=== PATIENT | female | born 1995 | race Caucasian/White ===

== ENCOUNTER → 2016-07-22 | Outpatient (CLI) | payer OTHER ==
[2016-07-23 12:44] LABS: HIV SCRN NEGATIVE (NEGATIVE); HIV SCRN1 NEGATIVE (NEGATIVE)
[2016-07-23 12:46] LABS: CONTROL LINE INT CTR LINE PRESENT
== END ==
LOC: M SMT 14:00
PROVIDERS: ATTEND Obstetrics & Gynecology
DX: Z34.83 Encounter for supervision of other normal pregnancy, third trimester (principal)

== ENCOUNTER → 2016-07-23 | Outpatient (REF) | payer OTHER | LOC: M LAB REF 13:03 | PROVIDERS: ATTEND Advanced Practice Midwife | DX: Z34.83 Encounter for supervision of other normal pregnancy, third trimester (principal) ==

== ENCOUNTER 2016-08-09 12:36 | Outpatient (CLI) | payer OTHER ==
[~2016-08-09] VITALS: Ht 165.1 cm; Wt 105.0 kg
[2016-08-09 12:50] VITALS: BP 105/55
[2016-08-09] MEDS ORDERED: PRENTAB9 PO (12:56)
[2016-08-10] MEDS ORDERED: EVEN10003 PO (09:21)
== END 2016-08-09 14:05 | disposition home or self-care (01) ==
LOC: M LDO 12:36
PROVIDERS: ATTEND Obstetrics & Gynecology
DX: O47.1 False labor at or after 37 completed weeks of gestation (principal); Z3A.40 40 weeks gestation of pregnancy; O09.293 Supervision of pregnancy with other poor reproductive or obstetric history, third trimester

== ENCOUNTER 2016-08-11 05:21 | Inpatient (IN) | payer OTHER ==
[~2016-08-11] VITALS: Ht 165.1 cm; Wt 105.0 kg
[2016-08-11] VITALS (32 sets, daily range): BP systolic 96–179; BP diastolic 52–102
[~2016-08-11 05:21] MED LIST: EVEN10003 PO; PRENTAB9 PO
[2016-08-11] MEDS ORDERED: LR 1,000 ML IV SCH (06:17)
[2016-08-11] MEDS ORDERED: LACTATED RINGER'S 1000 ML IV STA (06:17)
[2016-08-11 06:48] LABS: MEAN CORPUSCULAR HEMOGLOBIN 29.3 pg (27.0-33.0); MEAN CORPUSCULAR HGB CONC 32.9 g/dl (32.0-36.5); MEAN CORPUSCULAR VOLUME 89.3 fl (80.0-96.0); WHITE BLOOD COUNT 12.8 K/mm3 (4.0-10.0)
--- NOTE | 2016-08-11 06:59 | HPE ---
DATE OF ADMISSION: 08/11/2016 Yamilet is a 21-year-old 2, para 1-0-0-1 at 40-6/7 weeks gestation with an estimated date of confinement (EDC) of 08/05/2016 based on last menstrual period and confirmed by first trimester ultrasound. She presents to labor and delivery today with a complaint of contractions every five minutes that started approximately at 0200 that progressively got closer together and more uncomfortable. Her care was initiated at [facility] with a transfer of care to [facility] at 35 weeks gestation. course complicated by a prior section with an uncertain desire for trial of labor after (TOLAC). OBSTETRICAL HISTORY: June 2014 at 40-2/7 weeks gestation. She underwent a primary section for a 7 pounds 6 ounces male. Indication was arrest of descent. OBSTETRICAL (OB) LABS: Blood type A negative, antibody negative. Pap was normal. Rubella immune, VDRL nonreactive. Urine culture no growth. Hepatitis B surface antigen negative, HIV negative. Hepatitis C antibody nonreactive. Gonorrhea, chlamydia negative. Cystic fibrosis carrier screening negative. Declined to quad screen. Gestational diabetic screening elevated at 142 with a normal 3-hour glucose tolerance test, fasting 82, 1-hour 122, 2-hour 170, 3-hour 172. Her GBS is negative. PAST MEDICAL HISTORY: Uncomplicated. PAST SURGICAL HISTORY: Primary section. FAMILY HISTORY: Noncontributory. SOCIAL HISTORY: The patient is . She is a former smoker, quit with the positive . She denies alcohol and drug use. No history of any sexually transmitted infections and denies history of abuse physical, sexual and emotional. ALLERGIES: No known drug allergies. CURRENT MEDICATIONS: - vitamins OBJECTIVE: VITAL SIGNS: Temperature has not been taken, pulse 88, blood pressure 138/84. GENERAL: She is mildly uncomfortable with her contractions. She does deep breathe and tense up with each one. heart rate is 145 with moderate variability, positive accelerations noted. No decelerations observed. Artie approximately every 2-4 minutes palpate moderate. VAGINAL EXAM: Sterile vaginal exam 2 cm dilated 90% effaced, minus two station. Membranes are intact with no bloody show. ABDOMEN: Abdomen is gravid, cephalic presentation. Approximate weight 8 pounds. ASSESSMENT: Intrauterine at 40-6/7 weeks. heart rate category one, active labor. PLAN: Admit the patient to labor and delivery. Intravenous (IV) fluid bolus. Labs as ordered. Out of bed ad sheng. the patient has decided at this time she wants to have a trial of labor after . The risks and benefits related to trial of labor after section (TOLAC) were reviewed with the patient as well as risk and benefits to repeat section. All of the patient's questions have been answered. ABDULAZIZD
[2016-08-11] MEDS ORDERED: FENTANYL 2MCG/ML ROPIVACAINE 0.2% NACL 250 ML CADD As Ordered ONE (12:02)
[2016-08-11] MEDS ORDERED: EPIDURAL/PCA KEYS XX PRN (12:15)
[2016-08-11] MEDS ORDERED: ONDANSETRON 4MG/2ML VIAL (J2405) IV PRN (12:15)
[2016-08-11] MEDS ORDERED: NALOXONE INJ 0.4 MG/1 ML VIAL (J2310) IV PRN (12:15)
[2016-08-11] MEDS ORDERED: FENTANYL/ROPIVACAINE/NACL CADD 250 ML EPIDURAL SCH (12:15)
[2016-08-11] MEDS ORDERED: REFRIGERATOR IV KEYS XX PRN (12:15)
[2016-08-11] MEDS ORDERED: diphenhydrAMINE INJ 50MG/ML VIAL (J1200) IV PRN (12:15)
[2016-08-11] MEDS ORDERED: EPIDURAL COMMENT XX SCH (12:15)
[2016-08-11] MEDS ORDERED: OXYTOCIN DRIP 30 UNITS in APPROPRIATE DILUENT 1 EA IV SCH (14:30)
[2016-08-11] MEDS ORDERED: MORPHINE PRES-FREE INJ 10 MG/10 ML VIAL (J2274) As Ordered ONE (23:31)
[2016-08-11] MEDS ORDERED: ceFAZolin 2 GM/D5W 50 ML IV BAG (J0690) As Ordered ONE (23:34)
[2016-08-11] MEDS ORDERED: SODIUM BICARBONATE 8.4% INJ 50MEQ 50 ML VIAL As Ordered ONE (23:34)
[2016-08-11] MEDS ORDERED: LIDOCAINE 2% W/EPIN INJ 20ML **PRES FREE As Ordered ONE (23:34)
[2016-08-11] MEDS ORDERED: BICITRA 30ML SOLN UDC As Ordered ONE (23:35)
[2016-08-12] VITALS (7 sets, daily range): BP systolic 92–126; BP diastolic 53–66
[2016-08-12] MEDS ORDERED: MEPERIDINE 50 MG/ML 1ML VIAL (J2175) As Ordered ONE (00:29)
[2016-08-12] MEDS ORDERED: NALOXONE INJ 0.4 MG/1 ML VIAL (J2310) IV PRN ×2 (00:30)
[2016-08-12] MEDS ORDERED: METOCLOPRAMIDE INJ 10MG/2ML VIAL (J2765) IV PRN (00:30)
[2016-08-12 00:58] LABS: CORD GAS ABE V -5.9; CORD GAS HCO3 V 20.6 MEQ/L; CORD GAS PH V 7.289 UNITS; CORD GAS PO2 V 16.2 mmHg; CORD GAS SBC V 18.2 MEQ/L
[2016-08-12 00:59] LABS: CORD GAS ABE A -6.6; CORD GAS HCO3 A 20.6 MEQ/L; CORD GAS O2 SAT A 20.4 %; CORD GAS PCO2 A 47.4 mmHg; CORD GAS PH A 7.257 UNITS; CORD GAS PO2 A 13.3 mmHg; CORD GAS SBC A 17.5 MEQ/L; CORD GAS TCO2 A 22.1 MEQ/L
[2016-08-12] MEDS: LR 1,000 ML IV SCH ×3 (01:01→17:01)
[2016-08-12] MEDS ORDERED: MEPERIDINE INJ 25 MG/ML VIAL (J2175) IV PRN (01:15)
[2016-08-12] MEDS ORDERED: ONDANSETRON 4MG/2ML VIAL (J2405) IV PRN ×2 (01:15)
[2016-08-12] MEDS ORDERED: NALBUPHINE HCL 10 MG/ML AMP (J2300) IV PRN (01:15)
[2016-08-12] MEDS ORDERED: fentaNYL 100 MCG/2 ML INJECTION (J3010) IV PRN (01:15)
[2016-08-12] MEDS ORDERED: MEASLES,MUMPS,RUBELLA VACCINE INJ (MMR-II) (90707) SC SCH (01:15)
[2016-08-12] MEDS ORDERED: OXYTOCIN DRIP 30 UNITS in APPROPRIATE DILUENT 1 EA IV ONE (01:15)
[2016-08-12] MEDS ORDERED: KETOROLAC 30 MG/ML VIAL (J1885) IV PRN (01:15)
[2016-08-12] MEDS ORDERED: RHOGAM 300 MCG (1500 IU) INJ (J2790) IM SCH (01:15)
[2016-08-12] MEDS: KETOROLAC 30 MG/ML VIAL (J1885) IV SCH ×4 (01:30→19:57)
[2016-08-12] MEDS ORDERED: diphenhydrAMINE 25 MG CAP PO PRN (04:15)
[2016-08-12] MEDS ORDERED: PERC5TAB6 PO (06:30)
[2016-08-12] MEDS: PRENATAL VITAMIN TAB PO SCH (07:30)
[2016-08-12] MEDS: NALBUPHINE HCL 10 MG/ML AMP (J2300) IV PRN ×2 (07:43→17:57)
[2016-08-12] MEDS: ENOXAPARIN 40 MG/0.4 ML SYRINGE (J1650) SC SCH (19:57)
[2016-08-13] MEDS: LR 1,000 ML IV SCH ×3 (01:01→17:01)
[2016-08-13 02:00] VITALS: BP 112/53
[2016-08-13] MEDS: IBUPROFEN 800 MG TAB PO SCH ×2 (04:13→20:08)
[2016-08-13] MEDS: PERCOCET 5MG/325MG TAB PO PRN ×3 (05:47→16:45)
[2016-08-13 05:55] VITALS: BP 97/50
[2016-08-13 07:14] LABS: MEAN CORPUSCULAR HEMOGLOBIN 28.5 pg (27.0-33.0); MEAN CORPUSCULAR HGB CONC 32.1 g/dl (32.0-36.5); MEAN CORPUSCULAR VOLUME 88.9 fl (80.0-96.0); RED CELL DISTRIBUTION WIDTH 13.3 % (11.5-14.5); WHITE BLOOD COUNT 12.7 K/mm3 (4.0-10.0)
--- NOTE | 2016-08-13 07:25 | RO ---
DATE OF PROCEDURE: 08/12/2016 PREPROCEDURE DIAGNOSIS: 41 weeks gestation, prior section, tachycardia recurrent, variable decelerations. POSTPROCEDURE DIAGNOSIS: 41 weeks gestation, prior section, tachycardia recurrent, variable decelerations. PROCEDURE: Repeat low transverse section. SURGEON: Dr. Chuy Mckeon. ACCESSIONER: ANESTHESIA: Epidural. ESTIMATED BLOOD LOSS: 600 mL. FINDINGS: 8 pound 13 ounce female , 6 and 9. Dense scarring of the bladder to the lower uterine segment. Otherwise normal uterus, tubes and ovaries. OPERATIVE SUMMARY: The patient was taken to the operating room where epidural anesthesia was then placed. The urine in the Escalante catheter was noted to be blood tinged during second stage of labor. Patient was prepped and draped in the supine position. A Pfannenstiel skin incision was made with a scalpel and carried through to the fascia. The fascia was nicked and extended. The peritoneal cavity was entered. The bladder was dissected off the lower uterine segment. The bladder was noted to be densely adherent. The bladder was edematous but appeared to be intact upon thorough inspection. Curvilinear incision was made in the lower uterine segment until clear fluid was noted. This was extended manually. The was delivered in vertex position using standard maneuvers without difficulty. The cord was doubly clamped and cut. The infant was handed off to the awaiting nurses. The placenta was expressed. The uterus was exteriorized and cleared of clots and debris. Uterine incision was closed with #0 Vicryl in a running locked fashion. A second imbricating layer of #0 Vicryl was placed. The uterus was placed back in the abdominal cavity and the bladder was inspected and noted to be intact. The peritoneum was closed with #2-0 Vicryl in a running fashion. The fascia was closed with #0 Vicryl in a running fashion. The subcutaneous layer was irrigated. Deep layer was closed with #3-0 Chromic. The skin was closed with #4-0 Monocryl. Sponge, instrument, needle counts were correct. The patient went to the recovery room in stable condition.
[2016-08-13] MEDS: PRENATAL VITAMIN TAB PO SCH (08:16)
[2016-08-13] MEDS ORDERED: ADACEL/BOOSTRIX VACCINE (DIPHTH/PERTUSS/ACELL/TETANUS)0.5ML SYR (90715) IM ONE (09:00)
[2016-08-13 10:15] VITALS: BP 122/56
[2016-08-13 13:49] VITALS: BP 117/53
[2016-08-13] MEDS: DOCUSATE SODIUM 100 MG CAP PO PRN (16:44)
[2016-08-13 18:18] VITALS: BP 107/53
[2016-08-13] MEDS: ENOXAPARIN 40 MG/0.4 ML SYRINGE (J1650) SC SCH (20:09)
[2016-08-13 22:00] VITALS: BP 98/44
[2016-08-14] MEDS: PERCOCET 5MG/325MG TAB PO PRN ×5 (00:25→21:10)
[2016-08-14] MEDS: LR 1,000 ML IV SCH (01:01)
[2016-08-14] MEDS: IBUPROFEN 800 MG TAB PO SCH ×3 (03:44→19:43)
[2016-08-14 05:39] VITALS: BP 92/44
[2016-08-14] MEDS: PRENATAL VITAMIN TAB PO SCH (07:45)
[2016-08-14 18:13] VITALS: BP 125/70
[2016-08-14] MEDS: ENOXAPARIN 40 MG/0.4 ML SYRINGE (J1650) SC SCH (19:43)
[2016-08-15] MEDS: IBUPROFEN 800 MG TAB PO SCH ×2 (03:33→11:18)
[2016-08-15] MEDS: PERCOCET 5MG/325MG TAB PO PRN ×3 (04:18→13:00)
[2016-08-15 05:28] VITALS: BP 120/71
[2016-08-15 06:53] LABS: MEAN CORPUSCULAR HEMOGLOBIN 28.5 pg (27.0-33.0); MEAN CORPUSCULAR VOLUME 88.9 fl (80.0-96.0); RED CELL DISTRIBUTION WIDTH 13.3 % (11.5-14.5); WHITE BLOOD COUNT 6.9 K/mm3 (4.0-10.0)
[2016-08-15] MEDS: PRENATAL VITAMIN TAB PO SCH (08:50)
[2016-08-15] MEDS ORDERED: IBUP-1114 PO (10:47)
[2016-08-15] MEDS ORDERED: COLA100C PO (10:47)
[2016-08-15] MEDS: DOCUSATE SODIUM 100 MG CAP PO PRN (11:18)
--- NOTE | 2016-08-17 07:55 | DSES ---
DATE OF ADMISSION: 08/11/2016 DATE OF DISCHARGE: 08/15/2016 DISCHARGE DIAGNOSES: 1. Repeat section. 2. Active labor. PROCEDURES PERFORMED WHILE IN THE HOSPITAL: 1. Epidural. 2. Repeat section. HISTORY AND HOSPITAL COURSE: This patient is a 21-year-old who presented at 41 weeks in active labor. Her history is significant for a prior section and she had expressed her desire to have a trial of labor. She progressed to complete, complete. She began to push. Because of decelerations, she underwent a section which was productive of a live born female infant with Apgars of 6 and 9. Weight was 8 pounds 13 ounces. Estimated blood loss at the time of surgery was 600 mL. Ms. Estevez did well postoperatively and by postoperative day #3 had met all discharge criteria and was discharged home in stable condition. PHYSICAL EXAM ON DATE OF DISCHARGE: Her vital signs were stable. She was afebrile. General Appearance: Well appearing, in no acute distress. Her abdomen was soft and appropriately tender. Fundus was below the umbilicus. Incision was clean, dry and intact, well approximated. Extremities were negative for calf tenderness. DISCHARGE MEDICATIONS: Percocet. DISCHARGE INSTRUCTIONS: 1. She was instructed to followup in two weeks for an incision check. 2. Remain on pelvic rest for six weeks. 3. To report severe pain, heavy vaginal bleeding, fever, or incisional issues.
== END 2016-08-15 18:15 | disposition home or self-care (01) | DRG 766 ==
LOC: M LDI 05:21 → M OBS 08-12 02:51
PROVIDERS: ADMIT Obstetrics & Gynecology; ATTEND Obstetrics & Gynecology
PROC: 10D00Z1 Extraction of Products of Conception, Low, Open Approach (ICD-10-PCS; principal; 2016-08-12)
DX: O76 Abnormality in fetal heart rate and rhythm complicating labor and delivery (principal); Z37.0 Single live birth; Z3A.41 41 weeks gestation of pregnancy; O34.211 Maternal care for low transverse scar from previous cesarean delivery; Z87.891 Personal history of nicotine dependence; O48.0 Post-term pregnancy; O66.41 Failed attempted vaginal birth after previous cesarean delivery